=== PATIENT | female | born 1950 | race Two or more races ===

== ENCOUNTER 2019-11-27 07:56 | Emergency (ER) | payer MEDICARE, OTHER ==
[~2019-11-27] VITALS: Ht 160 cm; Wt 76.2 kg
--- NOTE | 2019-11-27 08:10 | NUR ---
BIB ra c/o midsternal chest pain since last night. HR 39 in field Aspirin 162mg given in field. on room air, breathing evenly and unlabored. connected to the monitor and pulse ox. kept comfortable, will continue to monitor accordingly.
--- NOTE | 2019-11-27 08:16 | NUR ---
02 applied @ 2lpm via NC for comfort.
[2019-11-27 08:32] LABS: BASOPHILS # (AUTO) 0.1 /CMM (0.0-0.2); BASOPHILS % (AUTO) 0.6 % (0.0-2.0); EOSINOPHILS % (AUTO) 0.1 % (0.0-6.0); HEMATOCRIT 36 % (33-45); HEMOGLOBIN 12.4 g/dL (11.5-14.8); LYMPHOCYTES # (AUTO) 1.6 /CMM (0.8-4.8); MEAN CORPUSCULAR HGB CONC 34 g/dl (31.0-36.0); MEAN CORPUSCULAR VOLUME 92 fL (82-100); MONOCYTES # (AUTO) 0.8 /CMM (0.1-1.30); MONOCYTES % (AUTO) 7.9 % (2.0-12.0); NEUTROPHILS % (AUTO) 76.4 % (43.0-81.0); PLATELET COUNT (AUTO) 184 /CMM (150-450); RED BLOOD CELL COUNT(AUTO) 3.95 MIL/uL (4.0-5.2); WHITE BLOOD COUNT (AUTO) 10.4 K/uL (4.3-11.0)
--- NOTE | 2019-11-27 08:34 | NUR ---
Dr. Villela (community resource officer) at bedside for eval.
[2019-11-27 08:36] LABS: CALCIUM, SERUM 8.6 mg/dL (8.5-10.1); CREATININE 1.1 mg/dL (0.6-1.3); POTASSIUM 3.6 mmol/L (3.5-5.1)
--- NOTE | 2019-11-27 08:38 | NUR ---
Atropine 0.5mg given IVP as ordered by
[2019-11-27 08:41] LABS: ALBUMIN 3.4 g/dL (3.4-5.0); BILIRUBIN,DIRECT 0.3 mg/dL (0.0-0.2); BILIRUBIN,TOTAL 1.4 mg/dL (0.2-1.0); TOTAL PROTEIN, SERUM 7.3 g/dL (6.4-8.2)
--- NOTE | 2019-11-27 08:44 | NUR ---
Atropine 0.5mg given IVP as verbally ordered by
--- NOTE | 2019-11-27 08:46 | NUR ---
Dopamine started 10mcg/kg/min as ordered verbally by
--- NOTE | 2019-11-27 08:46 | NUR ---
daughter at bedside talking to MD and superintendent pressure
[2019-11-27] MEDS ORDERED: ATROPINE SULFATE 1 MG/10 ML DISP.SYRIN ONE (08:48)
--- NOTE | 2019-11-27 08:48 | NUR ---
son at bedside talking to MD and information strategist
[2019-11-27] MEDS ORDERED: ONDANSETRON HCL/PF 4 MG/2 ML VIAL ONE (08:52)
--- NOTE | 2019-11-27 08:52 | NUR ---
Zofran 4mg given IVP LAC G18
--- NOTE | 2019-11-27 08:57 | NUR ---
STEVO OLSEN (DAUGHTER) [phone]
[2019-11-27] MEDS ORDERED: LIDOCAINE 2% 50 ML MDV IJ ONE (09:00)
[2019-11-27] MEDS ORDERED: ONDANSETRON HCL/PF - ER 4 MG/2 ML VIAL IV ONE (09:00)
[2019-11-27] MEDS ORDERED: IODIXANOL 150 ML IV ONE ×4 (09:00→10:33)
[2019-11-27] MEDS ORDERED: DOPamine 400 MG in IV D5W 250 ML IV PRN (09:00)
--- NOTE | 2019-11-27 09:00 | NUR ---
ADDENDUM: Intravenous End Time Documentation: Dopamine Drip ( 400 mg in D5W 250 ml) start time: 0900 AM End time:0944 AM IV site: LAC PIV # 18 Port # 1 Note: Infusing during transfer to lab courier at 0944 AM
[2019-11-27 09:09] VITALS: BP 151/64
--- NOTE | 2019-11-27 09:09 | NUR ---
wheeled patient via gurregina going to dairy and food laboratory assistant accompanied by daughter and dairy and food laboratory assistant RN's
[2019-11-27] MEDS ORDERED: IV SET PRIMARY PUMP SET 1 EA INFUS.SET MC ONE ×4 (09:10→11:54)
[2019-11-27] MEDS ORDERED: IV NS 0.9% 1,000 ML ONE (09:12)
[2019-11-27] MEDS ORDERED: IV NS 0.9% 50 ML IV ONE ×2 (09:12→09:21)
[2019-11-27] MEDS ORDERED: HEPARIN SODIUM, PORCINE 1,000 UNIT/ML VIAL ONE ×2 (09:23→11:38)
[2019-11-27] MEDS ORDERED: MIDAZOLAM HCL 2 MG/2ML VIAL ONE (09:24)
[2019-11-27] MEDS ORDERED: FENTANYL PF 100MCG/2ML AMPUL ONE (09:24)
[2019-11-27] MEDS ORDERED: IV NS 0.9% 500 ML IV ONE (09:43)
--- NOTE | 2019-11-27 09:44 | NUR ---
report given to Vu MANSFIELD for barrera.
[2019-11-27] MEDS ORDERED: NITROGLYCERIN 0.4 MG/TAB BOTTLE ONE (10:10)
[2019-11-27] MEDS ORDERED: D5W IV ONE (13:21)
[2019-11-27] MEDS ORDERED: NTG 50 MG/D5W250 ML BOTTL 50 MG/250 ML BTL IV ONE (13:21)
[2019-11-27] MEDS ORDERED: [UNRECOGNIZED DRUG - OTHER] IV ONE (13:21)
== END 2019-11-27 09:47 | disposition other institution (70) ==
LOC: ER 07:59 → UNDOADMIN 09:10 → ICU 09:10
DX: I21.9 Acute myocardial infarction, unspecified (principal); I44.2 Atrioventricular block, complete
CPT/HCPCS: 33210; 33967; 36415; 71045; 75774; 80048; 80076; 84484; 85025; 85730; 93005 ×3; 93458; 93463; 96365; 96375; 99152; 99291; A4216 ×2; C1887; J0461; J1644 ×5; J2250; J2405 ×2; J3010; J3490 ×2; J7040; 33218; 93452; C1894; G0500; Q9967